=== PATIENT | female | born 1945 | race Caucasian/White ===

== ENCOUNTER → 2024-07-30 | Outpatient (CLI) | payer MEDICARE, OTHER ==
--- NOTE | 2024-07-30 16:21 | US ---
EXAMINATION TYPE: US thyroid st tissue head/neck DATE OF EXAM: 07/30/2024 COMPARISON: NONE CLINICAL INDICATION: Female, 78 years old with history of E04.1 NODULE; thyroid nodule on thyroid med s GLAND SIZE: Right Lobe: 3.5 x 1.3 x .9 cm Overall Parenchyma: homogeneous Left Lobe: 2.9 x .9 x .9 cm Overall Parenchyma: homogeneous Isthmus Thickness: .3 cm NODULE RIGHT: # of nodules measured on right: 0 LEFT: # of nodules measured on left: 0 ISTHMUS: # of nodules measured in the isthmus: 0 Bilateral neck scanned, no evidence of lymphadenopathy. IMPRESSION: No thyroid nodules. [facility], , 07/30/2024 4:18 PM
== END | disposition home or self-care (01) ==
LOC: RADUSWWP 14:25
PROVIDERS: ATTEND Family Medicine
DX: E04.1 Nontoxic single thyroid nodule (principal)
CPT/HCPCS: 76536